=== PATIENT | male | born 1945 | race Caucasian/White ===

== ENCOUNTER 2021-04-09 05:00 | Outpatient (CLI) | payer MEDICARE | END 2021-04-09 05:01 | disposition critical access hospital (66) | LOC: EMS 05:00 | DX: R10.31 Right lower quadrant pain (principal); T83.031A Leakage of indwelling urethral catheter, initial encounter | CPT/HCPCS: A0425; A0429 ==

== ENCOUNTER 2021-04-09 05:36 | Emergency (ER) | payer MEDICARE ==
--- NOTE | 2021-04-09 05:50 | ED Physician Documentation ---
History of Present Illness - Stated complaint Stated Complaint: MALE - Additonal information Additional information: Patient is a 75-year-old male with past medical significant for prostate carcinoma, urinary retention presenting to the emergency department with right- sided flank pain. Endorses for acute urinary retention requiring placement of a Ardon catheter last . Receives care with [facility]. States had some persistent blood in his catheter. Reports that this morning he woke up with stabbing right-sided flank and abdominal pain. Review of Systems Ten Systems: 10 systems reviewed and negative Constitutional: denies: Fever Eyes: denies: Loss of vision Ears: denies: Loss of hearing Nose: denies: Rhinorrhea / runny nose Throat: denies: Dental pain / toothache Cardiac: denies: Chest pain / pressure Respiratory: denies: Dyspnea GI: reports: Abdominal Pain : reports: Ardon Problem Musculoskeletal: reports: Neck pain Neurologic: reports: Generalized weakness PD PAST MEDICAL HISTORY - Allergies Allergies/Adverse Reactions: Allergies Allergy/AdvReac Type Severity Reaction Status Date / Time NSAIDS (Non-Steroidal Allergy Edema Verified 04/09/21 05:55 Anti-Inflamma Penicillins Allergy Anaphylaxis Verified 04/09/21 05:55 PD ED PE NORMAL - Vitals Vital signs reviewed: Yes - HEENT HEENT: Atraumatic - Neck Neck: Supple, no meningeal sign - Cardiac Cardiac: RRR - Respiratory Respiratory: No respiratory distress - Abdomen Abdomen: Normal bowel sounds - Male Male : Other (Catheter in place, draining freely into leg bag, no hematuria) - Back Back: No: No CVA TTP, No spinal TTP - Derm Derm: Normal color - Extremities Extremities: No deformity - Neuro Neuro: Alert and oriented X 3, medical record technician 2-12 intact, No motor deficit PD MEDICAL DECISION MAKING - ED course Complexity details: reviewed results, d/w patient ED course: Patient is a 75-year-old male presenting to the emergency department with right- sided flank pain in setting of known prostate CA and acute urinary retention requiring catheter placement for the last several days. Afebrile, hemodynamically stable on arrival to the emergency department. Will initiate work-up with comprehensive labs and imaging. Will be signing out to the oncoming physician, please see their documentation for further detail.
[2021-04-09] MEDS ORDERED: SODIUM CHLORIDE 0.9% 1,000 ML IV STA (05:52)
[2021-04-09] MEDS ORDERED: ONDANSETRON 4 MG/2 ML VIAL IVP STA (05:52)
[2021-04-09] MEDS ORDERED: MORPHINE 2 MG/ML CARPUJECT IVP STA (05:52)
[2021-04-09] MEDS ORDERED: IOVERSOL 320 100 ML VIAL IVP ONE ×2 (06:08→07:47)
[2021-04-09 06:15] LABS: BILIRUBIN,URINE NEGATIVE (NEGATIVE); GLUCOSE, URINE (UA) NEGATIVE (NEGATIVE); KETONES,URINE (UA) NEGATIVE (NEGATIVE); LEUKOCYTE ESTERASE, URINE SMALL (NEGATIVE); NITRITE,URINE NEGATIVE (NEGATIVE); OCCULT BLOOD,URINE LARGE (NEGATIVE); PROTEIN,URINE TRACE mg/dL (NEGATIVE); UROBILINOGEN,URINE 0.2 (NORMAL) E.U./dL (NORMAL)
[2021-04-09 06:25] LABS: BACTERIA,URINE Rare /HPF (None Seen); CLARITY,URINE CLEAR (CLEAR); SQUAMOUS EPITHELIAL CELL,UR NONE SEEN (<= Few)
[2021-04-09 06:30] LABS: BASOPHILS % (AUTO) 0.3 %; EOSINOPHILS # (AUTO) 0.2 10^3/uL (0.0-0.7); EOSINOPHILS % (AUTO) 1.5 %; HCT - HEMATOCRIT 37.2 % (42.0-52.0); HGB - HEMOGLOBIN 12.6 g/dL (14.0-18.0); LYMPHOCYTES # (AUTO) 0.9 10^3/uL (1.5-3.5); LYMPHOCYTES % (AUTO) 8.1 %; MEAN CORPUSCULAR HEMOGLOBIN 32.1 pg (27.0-31.0); MEAN CORPUSCULAR HGB CONC 33.9 g/dL (32.0-36.0); MEAN CORPUSCULAR VOLUME 94.7 fL (80.0-94.0); MEAN PLATELET VOLUME 9.4 fL (7.4-11.4); MONOCYTES # (AUTO) 1.4 10^3/uL (0.0-1.0); NEUTROPHILS % (AUTO) 77.8 %; PLT - PLATELET COUNT 240 10^3/uL (130-450); RED BLOOD COUNT 3.93 10^6/uL (4.70-6.10); RED CELL DISTRIBUTION WIDTH 12.1 % (12.0-15.0); WHITE BLOOD COUNT 11.6 x10^3/uL (4.8-10.8)
[2021-04-09 06:43] LABS: ALBUMIN 4.2 g/dL (3.2-5.5); ALBUMIN/GLOBULIN RATIO 1.4 (1.0-2.2); BILIRUBIN,TOTAL 0.8 mg/dL (0.2-1.0); CALCIUM 9.6 mg/dL (8.5-10.3); POTASSIUM 3.8 mmol/L (3.5-5.0); TOTAL PROTEIN 7.2 g/dL (6.7-8.2)
[2021-04-09] MEDS ORDERED: DEXAMETHASONE 10 MG/ML VIAL IVP STA (08:12)
[2021-04-09 08:21] VITALS: BP 103/88
--- NOTE | 2021-04-09 08:27 | ED Physician Documentation ---
ED Addendum - Addendum Addendum: 04/09/21 08:17 75-year-old male presented with right acute right severe flank pain that is worsened by movement and breathing. The patient has a Ardon catheter in place for urinary obstruction and he has noted that his Ardon bag was having some problem with blood in the urine he repositioned the catheter yesterday and now has clear urine. Patient has been given some morphine in route to the hospital and has some improvement in his pain but he is still not able to sit up in bed without severe pain. The patient has been worked up by Dr. Ackerman including CT scanning of the abdomen blood work and urinalysis all fairly unremarkable. I examined the patient find him having some mild point tenderness in the lower lumbar paraspinous muscles and when the patient goes to move he is very stiff moves very slowly. Abdominal exam at the same time shows no specific tenderness benign exam. I questioned the patient further about his recent physical exertion and he indicates that he has been moving and has been moving boxes and bags in and out of the car none of them he thought weighed very much. He does recall later that yesterday he put a piece of carpet 5 feet x 8 feet into his car and remembers it being awkward to get into the car. He had some mild pain at the base of his s pine with that yesterday. 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 04/09/21 08:28 The patient has been given intravenous fluids and feels dehydrated. He has about 500 mL in and I have examined the patient's inferior vena cava with the bedside ultrasound and it is 1.3 cm with complete collapse consistent with about a 500ml deficit. We will infuse the remainder of the fluid ordered. 04/09/21 08:53 Ab/pel with CT report: Impression: 1. No hydronephrosis. No free fluid. No small bowel obstruction. 2. No compression fracture. No suspicious osseous lesion is identified. 3. Bladder wall thickening. This could be seen in cystitis or active inflammation. Recommend correlation with urinalysis. If indicated this could be further evaluated with cystoscopy.
--- NOTE | 2021-04-09 08:33 | CT Report ---
PROCEDURE: Abdomen/Pelvis W INDICATIONS: Rt flank pain, h/o prostate ca CONTRAST: IV CONTRAST: Optiray 320 ml: 100 PO CONTRAST: *NO PO CONTRAST TECHNIQUE: After the administration of intravenous contrast, 5 mm thick sections acquired from the diaphragms to the symphysis. 5 mm thick coronal and sagittal reformats were acquired. For radiation dose reducti on, the following was used: automated exposure control, adjustment of mA and/or kV according to mariann ent size. COMPARISON: None. FINDINGS: Image quality: Excellent. ABDOMEN: Lung bases: Lung bases are clear. Heart size is normal. Mitral annular calcification. Solid organs: Liver and spleen are normal in size. Gallbladder is unremarkable. Biliary system is non dilated. Pancreas enhances normally. No adrenal nodules. Kidneys demonstrate normal size and e nhancement, without hydronephrosis. Large simple cyst at the inferior pole of the left kidney measuri ng 6.7 cm. There are a few additional small left renal cyst. Peritoneum and bowel: Bowel loops demonstrate normal wall thickness and caliber. Normal appendix. N o free fluid or air. Nodes and vessels: No retroperitoneal or mesenteric adenopathy by size criteria. Aorta and inferior vena cava are normal in size. Mild calcified plaque. Miscellaneous: No ventral hernias. PELVIS: Genitourinary: Bladder is mostly decompressed with Ardon catheter. However, the bladder wall is thick ened. Prostate brachytherapy seeds. Miscellaneous: No definite inguinal hernias or adenopathy. Bones: No suspicious bony lesions is identified. No vertebral body compression fractures. Grade 1 a nterolisthesis of L5 on S1. Multilevel DDD. IMPRESSION: 1. No hydronephrosis. No free fluid. No small bowel obstruction. 2. No compression fracture. No suspicious osseous lesion is identified. 3. Bladder wall thickening. This could be seen in cystitis or active inflammation. -Recommend correlation with urinalysis. If indicated this could be further evaluated with cystoscopy. This report is concordant with the overnight preliminary interpretation. Reviewed by: Michael Lizama MD on 04/09/2021 8:31 AM [facility] Approved by: Michael Lizama MD on 04/09/2021 8:31 AM [facility] Station ID: [id number]
[2021-04-09] MEDS ORDERED: HYDROcod/ACETAM 5/325 MG TABLET PO STA (09:03)
[2021-04-09] MEDS ORDERED: CYCLOBENZAPRINE 10 MG TABLET PO STA (09:03)
== END 2021-04-09 09:13 | disposition home or self-care (01) ==
LOC: ED 05:36
DX: S39.012A Strain of muscle, fascia and tendon of lower back, initial encounter (principal); X50.0XXA Overexertion from strenuous movement or load, initial encounter; Y93.E6 Activity, residential relocation; C61 Malignant neoplasm of prostate; E86.0 Dehydration
CPT/HCPCS: 36415; 74177; 80053; 81001; 83605; 83690; 85025; 87086; 96361; 96374; 96375; 99283; 99284; A9270; Q9967; 81003

== ENCOUNTER 2021-11-05 12:14 | Outpatient (CLI) | payer MEDICARE ==
[2021-11-05 12:20] LABS: BASOPHILS # (AUTO) 0.1 10^3/uL (0.0-0.1); BASOPHILS % (AUTO) 0.3 %; EOSINOPHILS # (AUTO) 0.2 10^3/uL (0.0-0.7); EOSINOPHILS % (AUTO) 0.9 %; HCT - HEMATOCRIT 25.6 % (42.0-52.0); HGB - HEMOGLOBIN 8.2 g/dL (14.0-18.0); LYMPHOCYTES # (AUTO) 1.4 10^3/uL (1.5-3.5); MEAN CORPUSCULAR HEMOGLOBIN 29.3 pg (27.0-31.0); MEAN CORPUSCULAR VOLUME 91.4 fL (80.0-94.0); MEAN PLATELET VOLUME 9.7 fL (7.4-11.4); MONOCYTES # (AUTO) 1.5 10^3/uL (0.0-1.0); MONOCYTES % (AUTO) 8.5 %; NEUTROPHILS # (AUTO) 13.6 10^3/uL (1.5-6.6); NEUTROPHILS % (AUTO) 79.4 %; PLT - PLATELET COUNT 497 10^3/uL (130-450); RED CELL DISTRIBUTION WIDTH 14.3 % (12.0-15.0); WHITE BLOOD COUNT 17.1 x10^3/uL (4.8-10.8)
[2021-11-05 12:42] LABS: ALBUMIN 2.9 g/dL (3.2-5.5); ALBUMIN/GLOBULIN RATIO 0.7 (1.0-2.2); BILIRUBIN,TOTAL 0.4 mg/dL (0.2-1.0); CALCIUM 9.5 mg/dL (8.5-10.3); CREATININE 2.3 mg/dL (0.6-1.2); POTASSIUM 5.6 mmol/L (3.5-5.0); TOTAL PROTEIN 6.9 g/dL (6.7-8.2)
== END 2021-11-05 12:15 | disposition home or self-care (01) ==
LOC: LAB.R 12:14
DX: C67.9 Malignant neoplasm of bladder, unspecified (principal)
CPT/HCPCS: 80053; 84153; 85025

== ENCOUNTER 2021-11-12 12:48 | Outpatient (CLI) | payer MEDICARE | END 2021-11-12 12:49 | disposition home or self-care (01) | LOC: LAB.R 12:48 | PROVIDERS: ATTEND Internal Medicine | DX: N39.0 Urinary tract infection, site not specified (principal) | CPT/HCPCS: 87077; 87086; 87181 ==